=== PATIENT | male | born 1960 | race Caucasian/White ===

== ENCOUNTER → 2019-12-14 14:16 | Outpatient (BNVA) | payer SELFPAY | PROVIDERS: PCP Pediatrics; Referring Provider Pediatrics; Visit Provider Physician Assistant | DX: Z01.818 Encounter for other preprocedural examination (principal) | CPT/HCPCS: 99203 ==

== ENCOUNTER 2020-02-20 07:38 | Day surgery (SDC) | payer OTHER, SELFPAY ==
[2020-02-15 11:07] VITALS: BMI 27.8
--- NOTE | 2020-02-17 09:06 | HO.ANESPROP2 ---
Documented by User: Bisi Jiménez 02/17/20 09:07 HPI - Anesthesia Eval Consult details Narrative: 59yo M for Colonoscopy [facility] Past Medical History Medical History HTN (hypertension) Family History Family History Father No problems noted. Mother No problems noted. 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 [employer] Allergies Allergy/AdvReac Type Severity Reaction Status Date / Time No Known Allergies Allergy Unverified 11/24/19 19:36 [No Known Allergies*] Home Medications Medication Instructions Recorded Confirmed Type benazepril 20 1 tab PO DAILY 12/14/19 02/15/20 History mg-hydrochlorothiazide 25 mg tablet omega 1-tci-gaz-fish oil 1,000 mg 1 cap PO BID 12/14/19 02/15/20 History (120 mg-180 mg) capsule Exam Exam Date and Time: February 17, 2020 0906 Height,Weight and Vital Signs: Height 5 ft 4 in Weight 73.482 kg Assessment and Plan Assessment Anesthesia Assessment: Chart Reviewed Documented by User: Bonnie Blum 02/20/20 08:43 [facility] Past Medical History Medical History HTN (hypertension) Family History Family History Father No problems noted. Mother No problems noted. 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[employer] Allergies Allergy/AdvReac Type Severity Reaction Status Date / Time No Known Allergies Allergy Unverified 11/24/19 19:36 [No Known Allergies*] Home Medications Medication Instructions Recorded Confirmed Type benazepril 20 1 tab PO DAILY 12/14/19 02/15/20 History mg-hydrochlorothiazide 25 mg tablet omega 4-vku-uhp-fish oil 1,000 mg 1 cap PO BID 12/14/19 02/15/20 History (120 mg-180 mg) capsule Exam Height,Weight and Vital Signs: Vital Signs Temp Pulse Resp BP Pulse Ox 02/20/20 08:21 82 18 147/87 H 98 02/20/20 07:47 97.3 F 101 H 18 175/99 H 98 Narrative Narrative: Patient had what looked like a panic attack while being assessed- claustrophobia, tachycardia,palpitations, feeling hot, sat up suddenly and then jumped out of bed. [place] better after standing and pacing for a few seconds. Says he gets episodes like these. Not on any medication for anxiety. Baseline HR while I was talking to patient was 90s to low 100s with BP 170s/90s and I had asked him hust before the episode if he was feeling nervous. During episode HR increased to 120s- sinus tachycardia on EKG, no ST changes. Airway Mallampati Class: III TM Dist: >3cm Neck ROM: Full Loose/Missing/Broken Teeth: Yes (Chipped top right) Heart: RRR Lungs: CTAB Assessment and Plan Assessment Anesthesia Assessment: Anesthesia Plan Discussed and Chart Reviewed Final Anesthetic Review NPO: Yes ASA Class: II Final Preanesthetic Review: No Changes in Pt Med Stat, Meds/Allgs Chart Reviewed, Consent Obtained/Reviewed and Anes Risks/Benef Reviewed Patient Risk: Low Procedure Risk: Low Anesthetic Plan Anesthetic Plan: MAC: Disposition: Standard PACU
[2020-02-20 07:47] VITALS: BP 175/99; PULSE 101; RESP 18; TEMP 36.3; O2SAT 98; BMI 28.3
[2020-02-20] MEDS: Lactated Ringers 1,000 ML 100 ML IVCONT (08:20)
[2020-02-20 08:21] VITALS: BP 147/87; PULSE 82; RESP 18; O2SAT 98
--- NOTE | 2020-02-20 08:26 | W.PM.OPN ---
Operative Note Operative Note Date of Service: 02/20/20 Narrative: Pre-op diagnosis: colon cancer screening Post-op diagnosis: other (diverticulosis, hemorrhoids) Procedure: COLONOSCOPY TILL CECUM Consent: Indications for the procedure and potential complications of bleeding, perforation, reaction to medications and missed diagnosis were discussed with the patient and informed consent was obtained. Instrument: Olympus PCF H 190 L variable stiffness pediatric colonoscope Monitoring: Vital signs and clinical assessment, intermittent blood pressure monitoring, continuous EKG monitoring, Pulse oximetry and Carbon Dioxide monitoring were done throughout the procedure. Colon withdrawl time was 29 minutes. Procedure: The patient was placed in the left lateral decubitis position and pre-procedure medications were administered. After a digital rectal examination of the ano-rectum, the video colonoscope was inserted into the rectum and advanced through the colon to the cecum. The colonoscope was slowly withdrawn in a retrograde panoramic fashion and the colon mucosa was carefully examined including a retroflexed view of the rectum. Findings and interventions are described below. Procedure Difficulty: Without difficulty Findings: Terminal Ileum: Not evaluated Cecum: Normal Ascending Colon: Normal Transverse Colon: Normal Descending Colon: Moderate diverticulosis Sigmoid Colon: Moderate diverticulosis Rectum: Normal Ano-rectum: Moderate internal hemorrhoids Colon preparation: Fair despite copious irrigation - 80% of the mucosa was visualized. Impression and Post Procedure Diagnosis: Colonoscopy Findings: No polyps were detected. Moderate diverticulosis seen in the left colon Moderate hemorrhoids on retroflexed exam. Plan: Patient has an appointment on 02/23/20 in the [facility] with REENA Dalton . Repeat Colonoscopy in 3 years due to fair prep. Above findings were reviewed with the patient and diverticulosis handout was given in the discharge area Surgeon: Amaris Brantley MD Anesthesia: MAC (Dr Blum & ADARSH Mijares) Estimated blood loss (mL): 0 Pathology: none sent Condition: stable Disposition: PACU
--- NOTE | 2020-02-20 08:26 | MHC.SHP ---
Pre-Procedural Eval Section A The patient is an INPATIENT: No The History & Physical has been completed within 30 days and I have reviewed it.: No Section B Chief Complaint: Screening Details of Present Illness: A 59-year-old male with HTN referred for screening colonoscopy. His blood pressure is elevated, he says he gets up very early in the morning he has been working, running around is going home to take a rest as he goes back to work in the evening. Has not seen his PCP in quite a while however will be having a phone visit. No other associated symptoms. Patient states he [place] colon[place] about [place] and was recommended 5 year repeat colonoscopy. No further details. He has no GI complaints. He has no family history of colon or GI cancers. He has a normal bowel pattern. 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 he has no nausea, vomiting, abdominal pain, rectal bleeding, acid reflux, fever or chills. No shortness of breath, chest pain, palpitations, disease Relevant Family History (Specify if Yes): No Present Medications: see Short Stay Collaborative assessment Medical History: Significant History (Htn) History of Previous Operations: Relevant previous surgery/procedure and date(s) (colonoscopy) Allergies: Allergies Allergy/AdvReac Type Severity Reaction Status Date / Time No Known Allergies Allergy Unverified 11/24/19 19:36 [No Known Allergies*] Review of Systems Sugical H&P ROS: Negative: Constitution, Cardiovascular, Respiratory and Gastrointestinal Exam Surgical H&P Exam: Normal: Heart, Normal: Lungs, Normal: Extremities and Normal: Abdomen Plan Diagnosis/Plan: Unchanged Patient has been examined and remains a candidate for the planned procedure
[2020-02-20 09:17] VITALS: BP 111/47; PULSE 84; RESP 18; TEMP 35.9; O2SAT 95
[2020-02-20 09:32] VITALS: BP 130/54; PULSE 75; RESP 15; TEMP 35.9; O2SAT 95
--- NOTE | 2020-02-20 10:07 | HO.POSTANES ---
Post Anesthesia Evaluation Post Anesthesia Evaluation Vital Signs: Vital Signs Temp Pulse Resp BP Pulse Ox 02/20/20 09:32 96.6 F L 75 15 130/54 L 95 02/20/20 09:17 96.6 F L 84 18 111/47 L 95 02/20/20 08:21 82 18 147/87 H 98 02/20/20 07:47 97.3 F 101 H 18 175/99 H 98 Anesthesia: Monitored Mental Status: Awake Pain Control: Satisfactory Nausea/Vomiting: None Hydration: Adequate Anesthesia-Related Issues: No Anes. Related Issues
== END 2020-02-20 10:49 | disposition home or self-care (01) ==
PROVIDERS: Visit Provider Internal Medicine Gastroenterology
PROC: 0DJD8ZZ Inspection of Lower Intestinal Tract, Via Natural or Artificial Opening Endoscopic (ICD-10-PCS; CPT 45378; principal; 2020-02-20 08:30)
DX: Z12.11 Encounter for screening for malignant neoplasm of colon (principal); K57.30 Diverticulosis of large intestine without perforation or abscess without bleeding; K64.8 Other hemorrhoids; I10 Essential (primary) hypertension
CPT/HCPCS: 45378

== ENCOUNTER → 2020-02-23 10:27 | Outpatient (BNVA) | payer OTHER, SELFPAY | PROVIDERS: Visit Provider Physician Assistant | DX: Z76.89 Persons encountering health services in other specified circumstances (principal) ==

== ENCOUNTER 2021-04-03 07:42 | Day surgery (SDC) | payer OTHER, SELFPAY ==
[2021-03-29 10:32] VITALS: BMI 29.2
--- NOTE | 2021-04-02 08:30 | HO.ANESPROP2 ---
Documented by User: Bisi Jiménez NP 04/02/21 08:31 HPI - Anesthesia Eval Consult details Narrative: 60yo M for Colonoscopy s/p colo 02/2020 with MAC [facility] Active Problems Active Problems: All Active Problems (Updated 03/28/21 @ 14:11 by Martha Alves, RN) Encounter for screening colonoscopy (Acute) HTN (hypertension) (Acute) Diverticulosis (Acute) Past Medical History Medical History (Updated 03/28/21 @ 14:11 by Martha Alves RN) Dyslipidemia HTN (hypertension) Family History Family History Father No problems noted. Mother No problems noted. Family history of problems with anesthesia: No Surgical History Surgical History (Updated 03/28/21 @ 14:11 by Martha Alves RN) Hx of colonoscopy Hx of hernia repair History of Problems with Anesthesia: No Social History Social History Alcohol intake: current Alcohol intake frequency: a few times a week Patient Tobacco Use Status: Former Tobacco user Tobacco use type: Cigarette Smoked in Last 30 Days: No Use of substances other than those prescribed or required for medical reasons: No Are you DNR?: No Advance Directives: No Advance Directives Information Provided: Yes Recently lost weight without trying: No Nutrition Risks: No Nutritional Risk Current occupational status: employed 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[employer] Allergies Allergy/AdvReac Type Severity Reaction Status Date / Time No Known Allergies Allergy Verified 04/03/21 08:07 [No Known Allergies*] Home Medications Medication Instructions Recorded Confirmed Last Taken Type benazepril 20 1 tab PO DAILY 12/14/19 03/29/21 04/03/21 History mg-hydrochlorothiazide 25 mg tablet omega 8-hoe-cyw-fish oil 1,000 mg 1 cap PO BID 12/14/19 03/29/21 Unknown History (120 mg-180 mg) capsule Exam Exam Date and Time: April 02, 2021 0830 Height,Weight and Vital Signs: Height 5 ft 4 in Weight 77.111 kg Assessment and Plan Assessment Anesthesia Assessment: Chart Reviewed Final Anesthetic Review Family History of Problems with Anesthesia: No History of Problems with Anesthesia: No Documented by User: Bonnie Blum MD 04/03/21 08:28 [facility] Past Medical History Medical History (Updated 03/28/21 @ 14:11 by Martha Alves RN) Dyslipidemia HTN (hypertension) Family History Family History Father No problems noted. Mother No problems noted. Surgical History Surgical History (Updated 03/28/21 @ 14:11 by Martha Alves RN) Hx of colonoscopy Hx of hernia repair Social History Social History Alcohol intake: current Alcohol intake frequency: a few times a week Patient Tobacco Use Status: Former Tobacco user Tobacco use type: Cigarette Smoked in Last 30 Days: No Use of substances other than those prescribed or required for medical reasons: No Are you DNR?: No Advance Directives: No Advance Directives Information Provided: Yes Recently lost weight without trying: No Nutrition Risks: No Nutritional Risk Current occupational status: employed 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[employer] Allergies Allergy/AdvReac Type Severity Reaction Status Date / Time No Known Allergies Allergy Verified 04/03/21 08:07 [No Known Allergies*] Home Medications Medication Instructions Recorded Confirmed Last Taken Type benazepril 20 1 tab PO DAILY 12/14/19 03/29/21 04/03/21 History mg-hydrochlorothiazide 25 mg tablet omega 4-mlo-xna-fish oil 1,000 mg 1 cap PO BID 12/14/19 03/29/21 Unknown History (120 mg-180 mg) capsule Exam Height,Weight and Vital Signs: Height 5 ft 4 in Weight 77.111 kg Vital Signs Temp Pulse Resp BP Pulse Ox 04/03/21 08:16 97.5 F 70 16 142/87 H 98 Airway Mallampati Class: II TM Dist: >3cm Neck ROM: Full Denture: Upper Loose/Missing/Broken Teeth: No Heart: RRR Lungs: CTAB Assessment and Plan Assessment Anesthesia Assessment: Anesthesia Plan Discussed Final Anesthetic Review NPO: Yes ASA Class: II Final Preanesthetic Review: No Changes in Pt Med Stat, Meds/Allgs Chart Reviewed, Consent Obtained/Reviewed and Anes Risks/Benef Reviewed Patient Risk: Low Procedure Risk: Low Assessment/Block/Sedation in SS: Assess/Block/Sedation-SS Anesthetic Plan Anesthetic Plan: MAC: Disposition: Standard PACU
[2021-04-03 08:08] VITALS: BMI 27.4
[2021-04-03 08:16] VITALS: BP 142/87; PULSE 70; RESP 16; TEMP 36.4; O2SAT 98
[2021-04-03] MEDS: Lactated Ringers 1,000 ML 100 ML IVCONT (09:12)
[2021-04-03 10:15] VITALS: BP 102/69; PULSE 79; RESP 20; TEMP 36.4; O2SAT 100
--- NOTE | 2021-04-03 10:18 | PM.OP ---
Brief Operative Note Date of Service: 04/03/21 Pre-op diagnosis: Screening Post-op diagnosis: other (Diverticulosis) Procedure: Colonoscopy to the cecum Surgeon: Alec Coronel Anesthesia: MAC Was an Pocket Cutter used for this Procedure?: No Estimated blood loss (mL): 0 Pathology: none sent Condition: stable Disposition: no change
[2021-04-03 10:30] VITALS: BP 123/71; PULSE 86; RESP 20; O2SAT 98
--- NOTE | 2021-04-03 10:45 | OP_ITS ---
SURGEON: Alec Coronel MD INDICATIONS: The patient presents for evaluation of colorectal cancer screening. Full consent has been obtained from him for this, including risks of bleeding and perforation. PREOPERATIVE DIAGNOSIS: Colorectal cancer screening. POSTOPERATIVE DIAGNOSIS: PROCEDURE PERFORMED: Colonoscopy to the cecum. ESTIMATED BLOOD LOSS: COMPLICATIONS: ANESTHESIA: Monitored anesthesia care. ASSISTANTS: SPECIMENS: POSTOPERATIVE DIAGNOSES: Colorectal cancer screening, sigmoid diverticulosis, and internal hemorrhoids. DESCRIPTION OF PROCEDURE: The patient was placed in the left lateral decubitus position. The digital rectal exam revealed no abnormalities. The Olympus video pediatric colonoscope was entered into the rectum and advanced easily to the cecum. Once in the cecum, I did identify normal-appearing cecal pouch with appendiceal orifice and a normal-appearing ileocecal valve. The entire cecum and ileocecal valve appeared normal. There was transillumination of light deep in the right lower quadrant. The scope was slowly withdrawn assessing all mucosal surfaces carefully. Preparation was excellent. I did not visualize any sign of polyps, colitis, nor angiodysplasia. There was a mild amount of sigmoid diverticulosis. In the rectum, scope was retroflexed visualizing small internal hemorrhoids, but no other pathology. The rectal mucosa appeared normal. The scope was straightened and withdrawn from the patient. He tolerated the procedure well and was returned to recovery area in stable condition. IMPRESSION: 1. Diverticulosis. 2. Internal hemorrhoids. PLAN: Given the negative exam, I would recommend a followup colonoscopy in 10 years for further screening. He will otherwise see me on a p.r.n. basis. Alec Coronel MD RMW/MODL / [id number]
== END 2021-04-03 11:00 | disposition home or self-care (01) ==
PROVIDERS: PCP Pediatrics; Visit Provider Internal Medicine
PROC: 0DJD8ZZ Inspection of Lower Intestinal Tract, Via Natural or Artificial Opening Endoscopic (ICD-10-PCS; CPT 45378; principal; 2021-04-03 09:20)
DX: Z12.11 Encounter for screening for malignant neoplasm of colon (principal); K57.30 Diverticulosis of large intestine without perforation or abscess without bleeding; K64.8 Other hemorrhoids; I10 Essential (primary) hypertension; E78.5 Hyperlipidemia, unspecified; Z79.899 Other long term (current) drug therapy
CPT/HCPCS: 45378